=== PATIENT | female | born 1970 | race Caucasian/White ===

== ENCOUNTER → 2017-03-05 | Outpatient (CLI) | payer BC ==
[~2017-03-05] MED LIST: PRENATAL1 TA1 PO
== END ==
LOC: COL.VAS 14:28
DX: I82.412 Acute embolism and thrombosis of left femoral vein (principal); I82.432 Acute embolism and thrombosis of left popliteal vein; I82.492 Acute embolism and thrombosis of other specified deep vein of left lower extremity

== ENCOUNTER → 2017-05-05 | Outpatient (CLI) | payer BC | LOC: MC.RAD 13:40 | DX: Z12.31 Encounter for screening mammogram for malignant neoplasm of breast (principal) ==

== ENCOUNTER → 2017-06-03 | Outpatient (CLI) | payer BC | LOC: COL.VAS 07:52 | DX: I82.4Z2 Acute embolism and thrombosis of unspecified deep veins of left distal lower extremity (principal) ==

== ENCOUNTER → 2019-02-04 | Outpatient (CLI) | payer BC | LOC: MC.RAD 07:05 | DX: Z12.31 Encounter for screening mammogram for malignant neoplasm of breast (principal) ==

== ENCOUNTER 2019-09-17 17:45 | Emergency (ER) | payer BC ==
[~2019-09-17] VITALS: Ht 175.3 cm; Wt 63.6 kg
[2019-09-17 17:57] VITALS: TEMP 98.4
[2019-09-17 21:50] VITALS: BP 111/65; PULSE 72
== END 2019-09-17 22:10 | disposition home or self-care (01) ==
LOC: COL.ER 17:45
DX: S72.002A Fracture of unspecified part of neck of left femur, initial encounter for closed fracture (principal); S52.122A Displaced fracture of head of left radius, initial encounter for closed fracture; R40.2412 Glasgow coma scale score 13-15, at arrival to emergency department; V18.4XXA Pedal cycle driver injured in noncollision transport accident in traffic accident, initial encounter

== ENCOUNTER → 2020-02-08 | Outpatient (CLI) | payer BC | LOC: MC.RAD 07:38 | DX: Z12.31 Encounter for screening mammogram for malignant neoplasm of breast (principal) ==

== ENCOUNTER → 2021-01-16 | Outpatient (CLI) | payer BC | LOC: COL.RAD 09:07 | DX: E04.1 Nontoxic single thyroid nodule (principal) ==

== ENCOUNTER → 2021-03-20 | Outpatient (CLI) | payer BC | LOC: MC.RAD 08:29 | DX: Z12.31 Encounter for screening mammogram for malignant neoplasm of breast (principal); R92.1 Mammographic calcification found on diagnostic imaging of breast ==

== ENCOUNTER → 2021-03-22 | Outpatient (CLI) | payer BC | LOC: MC.RAD 12:48 | DX: R92.0 Mammographic microcalcification found on diagnostic imaging of breast (principal) ==

== ENCOUNTER → 2021-07-16 | Outpatient (CLI) | payer BC | LOC: COL.RAD 11:42 | DX: E04.1 Nontoxic single thyroid nodule (principal) ==

== ENCOUNTER → 2022-07-10 | Outpatient (CLI) | payer BC | LOC: COL.RAD 07:07 | DX: E04.1 Nontoxic single thyroid nodule (principal); E03.9 Hypothyroidism, unspecified ==

== ENCOUNTER → 2022-07-12 | Outpatient (CLI) | payer BC | LOC: MC.RAD 07:55 | DX: R92.1 Mammographic calcification found on diagnostic imaging of breast (principal) ==